=== PATIENT | male | born 1965 | race African-American/Black ===

== ENCOUNTER 2021-04-19 06:53 | Emergency (ER) | payer OTHER, SELFPAY ==
[2021-04-19] VITALS (9 sets, daily range): BP systolic 124–136; BP diastolic 67–86; PULSE 67–76; RESP 13–21; TEMP 36.1–36.6; O2SAT 95–100
--- NOTE | ~2021-04-19 | CT_ITS ---
EXAMINATION: CT abdomen pelvis w con DATE: 04/19/2021 08:37 INDICATION: Lower abdominal pain, nausea and vomiting. TECHNIQUE: Computed tomography (CT) of the abdomen and pelvis was performed with 100 cc Omnipaque 350 intravenous contrast. The dose-length product was 1014.52 mGy-cm. Automated exposure control and ite rative reconstruction technique were employed. COMPARISON: None. FINDINGS: Lung bases are unremarkable. Heart size is normal. There are bilateral renal cysts. Status post cholecystectomy. There are nonobstructing left renal stones. No hydronephrosis. The liver, spleen, pancreas, left adrenal gland are unremarkable. There are cholecystectomy clips. Th ere is a 2 cm low-density mass in the right adrenal gland, likely benign adenoma. Nonobstructive lainey l gas pattern. There is acute colonic diverticulitis no evidence for perforation or abscess. No abnor mal pelvic masses or fluid collections. Normal appendix. No lymphadenopathy. Small hiatal hernia. No significant vascular abnormality. No acute osseous abnormality. At the junction of the descending and sigmoid colon. IMPRESSION: 1. Acute uncomplicated diverticulitis at the junction of descending and sigmoid colon. 2: Nonobstructing left nephrolithiasis. 3: Low density right adrenal mass measuring 2 cm, likely benign adenoma. Reviewed, dictated and finalized at location B.
[2021-04-19] MEDS: SODIUM CHLORIDE 0.9% IV 1,000 ML 999 ML IV CONT (07:36)
[2021-04-19 07:55] LABS: Basophils Percent Auto 0.6 % (0.2-1.2); Eosinophils Absolute Auto 0.1 K/mm3 (0-0.3); Eosinophils Percent Auto 1.8 % (0-4.4); Hematocrit 46.5 % (42.0-52.0); Hemoglobin 16.3 g/dL (14.0-18.0); Immature Granulocyte Absolute 0.01 K/mm3 (0.00-0.031); Immature Granulocyte Percent A 0.1 % (0-0.5); Lymphocytes Absolute Auto 1.56 K/mm3 (0.9-3.2); Lymphocytes Percent Auto 23.3 % (18.3-44.2); Mean Corpuscular HGB Conc 35.1 g/dl (32-36); Mean Corpuscular Hemoglobin 28.5 pg (26-34); Mean Corpuscular Volume 81.3 fl (80-100); Mean Platelet Volume 10.2 fl (7.4-10.4); Monocytes Absolute Auto 0.8 K/mm3 (0.1-0.6); Monocytes Percent Auto 12.5 % (2.6-8.5); Neutrophils Absolute Auto 4.1 K/mm3 (1.3-6.7); Neutrophils Percent Auto 61.7 % (45.5-73.1); Platelet Count Result 232 k/mm3 (150-375); Red Blood Count 5.72 M/mm3 (4.6-6.20); Red Cell Distribution Width 13.3 % (11.5-14.5); White Blood Count 6.7 K/mm3 (4.5-10.0)
[2021-04-19 08:07] LABS: Alanine Aminotransferase 31 U/L (4-50); Albumin Level 4.6 g/dL (3.5-5.1); Alkaline Phosphatase 59 U/L (38-126); Anion Gap 10 mmol/L (8-16); Aspartate Amino Transferase 27 U/L (17-59); Bilirubin,Total 0.7 mg/dL (0.2-1.3); Blood Urea Nitrogen 13 mg/dL (9-20); Calcium 9.8 mg/dL (8.4-10.2); Carbon Dioxide 23 mmol/L (22-30); Chloride 107 mmol/L (98-107); Estimated CRCL calculation 102 ml/min; Estimated Glomerular Filt Rate > 60; Glucose 114 mg/dL (75-110); Lipase 60 U/L (23-300); Potassium 3.9 mmol/L (3.4-5.0); Sodium 140 mmol/L (137-145)
--- NOTE | 2021-04-19 08:57 | ED.ABDPAIN ---
HPI - Abdominal Pain General Chief Complaint: Abdominal Pain Stated Complaint: ABD PAIN Time Seen by Provider: 04/19/21 07:24 Source: patient and RN notes reviewed Mode of arrival: ambulatory Limitations: no limitations History of Present Illness HPI narrative: Patient is 55 years old -[place] male presents with diffuse lower abdominal pain started yesterday, associated with nausea, vomiting and diaphoresis. Last vomitus was last night, patient was able to keep food and fluid down this morning Patient denies any fever, chills, chest pain or back pain. Status post cholecystectomy March 03, 2021, history of GERD, patient does not smoke or drink or uses drugs, no blood thinner. Related Data Allergies Allergy/AdvReac Type Severity Reaction Status Date / Time No Known Allergies Allergy Verified 04/19/21 07:14 Review of Systems Review of Systems: Narrative: CONSTITUTIONAL: Denies fever, chills, or sweats. EYES: Denies visual changes, redness, or discharge. ENT: Denies rhinorrhea, congestion, sore throat, or otalgia. CARDIOVASCULAR: Denies chest pain, palpitations, or edema. RESPIRATORY: Denies cough or dyspnea. GASTROINTESTINAL: Denies abdominal pain, nausea, vomiting, or diarrhea. GENITOURINARY: Denies dysuria or hematuria. SKIN: Denies rash or itching. MUSCULOSKELETAL: Denies back pain, joint pain, or myalgia. NEUROLOGIC: Denies headache, numbness, or weakness. PSYCHIATRIC: Denies anxiety or depression. Exam Narrative: Exam Narrative: General appearance: Well-developed, well-nourished Skin: Normal color Head: Normocephalic, nontraumatic Eyes: Clear conjunctiva ENT: Oropharynx normal, ears normal, nose normal Neck: Supple, nontender Chest and respiratory: Airway patent, no respiratory distress, no accessory muscle use Heart: Regular rate/rhythm Abdomen: Soft, diffusely tender mainly lower abdomen bilaterally, distention, hypoactive bowel sounds Vascular: Normal peripheral pulses, normal capillary refill. Musculoskeletal: Normal range of motion, nontender back Neurologic: Alert and oriented ?3, FAMILY SERVICES ASSISTANT is normal as tested, no gross motor deficit Course Course Emergency Course: Improving Consultations Date: 04/19/21 Time: 09:34 Vital Signs Vital signs: Vital Signs Temperature 36.1 C L 04/19/21 06:57 Pulse Rate 74 04/19/21 06:57 Respiratory Rate 20 04/19/21 06:57 Blood Pressure 129/67 04/19/21 06:57 Pulse Oximetry 100 04/19/21 06:57 Temperature 36.6 C 04/19/21 07:25 Pulse Rate 67 04/19/21 08:46 Respiratory Rate 14 04/19/21 08:46 Blood Pressure 130/86 04/19/21 07:46 Pulse Oximetry 95 04/19/21 08:18 MDM - Abdominal Pain MDM Narrative Medical decision making narrative: Small bowel obstruction, diverticulitis, constipation are my concern. Labs, IV fluid, IV Dilaudid and Zofran, CT abdomen and pelvis with IV contrast ordered. Further plan to follow Differential Diagnosis Differential diagnosis: Likely abdominal pain, constipation, diverticulitis and small bowel obstruction Lab Data Result diagrams: 04/19/21 07:47 04/19/21 07:47 Labs: Lab Results 04/19/21 04/19/21 04/19/21 Range/Units 07:47 07:47 07:47 WBC 6.7 (4.5-10.0) K/mm3 RBC 5.72 (4.6-6.20) M/mm3 Hgb 16.3 (14.0-18.0) g/dL Hct 46.5 (42.0-52.0) % MCV 81.3 (80-100) fl MCH 28.5 (26-34) pg MCHC 35.1 (32-36) g/dl RDW 13.3 (11.5-14.5) % Plt Count 232 (150-375) k/mm3 MPV 10.2 (7.4-10.4) fl Immature Gran % (Auto) 0.1 (0-0.5) % Neut % (Auto) 61.7 (45.5-73.1) % Lymph % (Auto) 23.3 (18.3-44.2) % [place] % (Auto) 12.5 H (2.6-8.5) % Eos % (Auto) 1.8 (0-4.
[2021-04-19] MEDS: HYDROmorphone HCL INJ (*CRX) 1 MG/ML SYR 0.5 MG IV PUSH (09:03)
[2021-04-19] MEDS: ONDANSETRON INJ 4 MG/2 ML VIAL IV PUSH (09:04)
== END 2021-04-19 09:45 | disposition home or self-care (01) ==
PROVIDERS: Emergency Provider Emergency Medicine
DX: K57.92 Diverticulitis of intestine, part unspecified, without perforation or abscess without bleeding (principal)
CPT/HCPCS: 36415; 74177; 80053; 83605; 83690; 85025; 96361; 96374; 96375; 99284; J1170; J2405; J7030; Q9967